=== PATIENT | male | born 1980 | race Caucasian/White ===

== ENCOUNTER 2017-05-22 02:37 | Emergency (ER) | payer OTHER ==
[~2017-05-22] VITALS: Ht 193 cm; Wt 113.4 kg
[2017-05-22] MEDS ORDERED: TETRACAINE 0.5% OPHTH SOLUTION 4ML BOTTLE. ONE (02:48)
[2017-05-22] MEDS ORDERED: FLUORESCEIN 1MG EYE STRIP. ONE (02:48)
--- NOTE | 2017-05-22 02:51 | PHYS DOC ---
General Chief Complaint: EYE PROBLEMS Stated Complaint: LEFT EYE ISSUE Time Seen by MD: 02:44 Source: patient Exam Limitations: no limitations Problems: History of Present Illness Initial Comments Patient is a 37-year-old male who comes to the ED complaining of left eye irritation. Patient states that approximately 8 PM last night he was outdoors and windy conditions when he felt as if an eyelash or another foreign body blew into his left eye. He states that he tried lifting anxiolytics, irrigating it, and took a shower at home trying to rid himself foreign body sensation however his eye continued to be irritated. He states that it felt somewhat better when he went to bed but awoke with severe left eye pain and photophobia with some mild upper left eyelid swelling. Vision in his left eye is mildly blurred he has clear tears no purulent drainage. The eye pain is caused him to have a headache prompting him to come for evaluation. In the ED complains of left eye irritation and headache described as moderate to severe worse with bright lights relieved by nothing. No pre-arrival treatment the patient does not wear contact lenses. 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 Visual acuity: 20/15 both, 20/20 individually R and L Timing/Duration: abrupt Severity: moderate Location: eye (L) Prearrival Treatment: flushing eyes Modifying Factors: improves with other Associated Symptoms: other Allergies: Coded Allergies: No Known Drug Allergies (Unverified , 05/22/17) Past Medical History Medical History: no pertinent history Surgical History: noncontributory Social History Smoker: non-smoker Alcohol: none Drugs: none Constitutional: denies chills, denies diaphoresis, denies fever Eyes: see HPI Ears: denies dizziness, denies pain Nose: denies clots, denies congestion, denies epistaxis Throat: denies pain, denies neck stiffness, denies painful swallowing, denies difficulty with fluids Respiratory: denies cough, denies shortness of breath Cardiovascular: denies chest pain, denies palpitations, denies syncope Gastrointestinal: denies diarrhea, denies nausea, denies vomiting Neurological: see HPI Physical Exam General Appearance: WD/WN, no apparent distress Eyes: right eye normal inspection, left eye other (left conjunctiva is injected the periorbital tissues are irritated there is no purulent drainage. 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 Polytrim drops applied to left eye I discussed [id number] prescription medications as well as close follow-up that Juan. Signs and symptoms to monitor as well as indications for urgent return to the department were discussed the patient's questions were answered to his satisfaction. He expressed agreement and understanding of treatment plan. Departure Time of Disposition: 03:04 Disposition: 01 HOME, SELF-CARE Diagnosis: corneal abrasion, foreign body left eye Condition: GOOD Patient Instructions: Eye - Corneal Abrasion, [id number], Eye - Foreign Body , [id number] Additional Instructions: As discussed no actual foreign body was noted it appears it was flushed from your eye prior to arrival. Please review the patient education materials given by ED staff. Avoid rubbing affected eye to prevent further damage. [id number] Tylenol and ibuprofen as needed for discomfort. Prescription: Polytrim ophthalmic drops Follow-up on Post in 1-2 days for recheck. Return to ED with new or changing symptoms. EDUAR ENRIQUEZ DO May 22, 2017 02:51
[2017-05-22] MEDS ORDERED: POLY10DR OS (03:03)
[2017-05-22] MEDS ORDERED: POLYMYXIN/TRIMETHOPRIM OPHTH SOLUTION 10ML BOTTLE. ONE (03:14)
[2017-05-22] MEDS ORDERED: POLYMYXIN/TRIMETHOPRIM OPHTH SOLUTION 10ML BOTTLE. OS ONE (03:15)
[2017-05-22 03:20] VITALS: BP 165/87
== END 2017-05-22 03:24 | disposition home or self-care (01) ==
LOC: ER 02:37
DX: T15.02XA Foreign body in cornea, left eye, initial encounter (principal); X58.XXXA Exposure to other specified factors, initial encounter; Y93.89 Activity, other specified; Y99.8 Other external cause status; Y92.89 Other specified places as the place of occurrence of the external cause
CPT/HCPCS: 99283